=== PATIENT | male | born 1940 | race Caucasian/White ===

== ENCOUNTER 2017-03-02 08:38 | Emergency (ER) | payer OTHER ==
[~2017-03-02] VITALS: Ht 170.2 cm; Wt 89.0 kg
[2017-03-02 08:51] VITALS: BP 176/84
[2017-03-02 08:52] VITALS: PULSE 134; RESP 16; TEMP 98.4; O2SAT 99
--- NOTE | 2017-03-02 08:54 | PD ---
HPI . Rapid heart rate Chief Complaint: Cardiac Complaint Time Seen by Provider: 08:42 Travel History International Travel<30 days: No Contact w/Intl Traveler<30days: No Traveled to known affect area: No History of Present Illness HPI Patient presents from his doctor's office for a rapid heart rate. The patient reports that he was at his doctor's office today just for a routine 6 month checkup. He does admit that he has felt his heart racing in his ears for the last couple of weeks. He denies any associated symptoms such as chest pain, shortness of breath, nausea. He denies any previous similar history. He has noted no modifying factors. His symptoms are very mild. PFSH Social History Tobacco Use: No Allergies-Medications (Allergen,Severity, Reaction): Coded Allergies: Lactose (Verified Allergy, Severe, 03/02/17) Reported Meds & Prescriptions Reported Meds & Active Scripts Active Reported Aspirin 81 (Aspirin) 81 Mg Tabdr 81 Mg PO DAILY Atorvastatin (Atorvastatin Calcium) 40 Mg Tab 40 Mg PO HS Losartan (Losartan Potassium) 25 Mg Tab 25 Mg PO DAILY Metformin (Metformin HCl) 850 Mg Tab 850 Mg PO BIDPC With meals Review of Systems Except as stated in HPI: all other systems reviewed are Neg HENT: No: Lightheadedness Cardiovascular: Positive: Tachycardia, No: Chest Pain or Discomfort Respiratory: No: Shortness of Breath Gastrointestinal: No: Nausea Physical Exam Narrative GENERAL: Patient is awake and alert and in no acute distress. SKIN: Warm and dry. He is a little clammy. He relates this to the hot weather. HEAD: Atraumatic. Normocephalic. EYES: Pupils equal and round. Extraocular movements are intact. ENT: No nasal bleeding or discharge. Mucous membranes pink and moist. NECK: Trachea midline. Neck is supple. CARDIOVASCULAR: Regular rhythm, rapid rate. Heart sounds normal. RESPIRATORY: No accessory muscle use. Lungs are clear with full air movement throughout. GASTROINTESTINAL: Abdomen soft, non-tender, nondistended. MUSCULOSKELETAL: No obvious deformities. No edema. NEUROLOGICAL: Awake and alert. No obvious cranial nerve deficits. Motor grossly within normal limits. Normal speech. PSYCHIATRIC: Appropriate mood and affect; insight and judgment normal. Data Data Last Documented VS Vital Signs Date Time Temp Pulse Resp B/P Pulse Ox O2 Delivery O2 Flow Rate FiO2 03/02/17 09:21 91 16 164/91 100 Nasal Cannula 2 03/02/17 09:04 98.4 Orders Ecg Monitoring (03/02/17 08:47) Blood Pressure (03/02/17 08:47) Iv Access Insert/Monitor (03/02/17 08:47) Oximetry (03/02/17 08:47) Vital Signs (03/02/17 08:47) Diltiazem Inj (Cardizem Inj) (03/02/17 09:00) Sodium Chloride 0.9% Flush (Ns Flush) (03/02/17 09:00) Diltiazem Inj (Cardizem Inj) (03/02/17 09:15) Electrocardiogram (03/02/17 08:47) Basic Metabolic Panel (Bmp) (03/02/17 08:47) Ckmb (Isoenzyme) Profile (03/02/17 08:47) Complete Blood Count With Diff (03/02/17 08:47) D-Dimer (03/02/17 08:47) Magnesium (Mg) (03/02/17 08:47) Prothrombin Time / Inr (Pt) (03/02/17 08:47) Act Partial Throm Time (Ptt) (03/02/17 08:47) Troponin I (03/02/17 08:47) Chest, Single Ap (03/02/17 08:47) Aspirin Chew (Aspirin Chew) (03/02/17 09:00) Thyroid Stimulating Hormone (03/02/17 08:47) Ct Pulmonary Angiogram (03/02/17 09:37) Labs Laboratory Tests Test 03/02/17 08:55 White Blood Count 7.3 TH/MM3 Red Blood Count 4.46 MIL/MM3 Hemoglobin 14.2 GM/DL Hematocrit 42.6 % Mean Corpuscular Volume 95.4 FL Mean Corpuscular Hemoglobin 31.8 PG Mean Corpuscular Hemoglobin 33.3 % Concent Red Cell Distribution Width 13.3 % Platelet Count 185 TH/MM3 Mean Platelet Volume 7.4 FL Neutrophils (%) (Auto) 55.0 % Lymphocytes (%) (Auto) 34.5 % Monocytes (%) (Auto) 7.6 % Eosinophils (%) (Auto) 2.3 % Basophils (%) (Auto) 0.6 % Neutrophils # (Auto) 4.0 TH/MM3 Lymphocytes # (Auto) 2.5 TH/MM3 Monocytes # (Auto) 0.6 TH/MM3 Eosinophils # (Auto) 0.2 TH/MM3 Basophils # (Auto) 0.0 TH/MM3 CBC Comment DIFF FINAL Differential Comment Prothrombin Time 10.9 SEC Prothromb Time International 1.0 RATIO Ratio Activated Partial 24.4 SEC Thromboplast Time D-Dimer Quantitative (PE/DVT) 0.65 MG/L FEU Sodium Level 139 MEQ/L Potassium Level 4.4 MEQ/L Chloride Level 105 MEQ/L Carbon Dioxide Level 24.3 MEQ/L Anion Gap 10 MEQ/L Blood Urea Nitrogen 13 MG/DL Creatinine 0.90 MG/DL Estimat Glomerular Filtration 82 ML/MIN Rate Random Glucose 256 MG/DL Calcium Level 9.2 MG/DL Magnesium Level 2.0 MG/DL Total Creatine Kinase 75 U/L Troponin I LESS THAN 0.02 NG/ML Thyroid Stimulating Hormone 2.000 uIU/ML [address] [place] [address] Medical Decision Making Medical Screen Exam Complete: Yes Emergency Medical Condition: Yes Medical Record Reviewed: Yes (he has no old records in our system. He does bring with him and EKG shows an atrial flutter pattern with a rate of about 135. ) Interpretation(s) EKG shows atrial flutter with a ventricular rate of 135. Differential Diagnosis Differential diagnosis of palpitations includes but is not limited to anxiety, SVT, aVF with RVR, VT, sinus tachycardia, PVCs Narrative Course Patient presents for treatment of atrial flutter with a rapid ventricular response. I have ordered Cardizem for rate control. He will eventually need to be anticoagulated. I have not ordered this yet pending consultation with the admitting doctor. I have ordered a chest pain workup as well as a TSH. CBC & BMP Diagram 03/02/17 08:55 Total creatinine is 75. Troponin is less than 0.02. TSH is 2.000. D-dimer is 0.65. I have subsequently ordered a CT for PE. The patient's rate has been controlled with a single IV bolus of Cardizem. The patient does not feel that he needs to have a CT for PE. Nor does he feel that he needs to be admitted for further evaluation and treatment. I will discuss the case with Dr. Min and we will come up with that disposition. Dr. Min is out of the office today. I have spoken with his nurse practitioner, Kirstin Minor. I will start the patient on Eliquis and Cardizem as an outpatient. He will make the referral to cardiology. She or Dr. Min will see the patient in follow-up on Sunday. Diagnosis Primary Impression: Atrial flutter with rapid ventricular response Additional Impression: Elevated d-dimer Patient Instructions: Atrial Flutter (DC), General Instructions Med/Other Pt SpecificInfo: Prescription(s) given Scripts Diltiazem CD 24 HR (Cardizem CD 24 HR)240 Mg [id number] Mg PO DAILY #30 CAP Ref 0 Prov:Faye Gotti MD 03/02/17 Apixaban (Eliquis)5 Mg Tab5 Mg PO BID #60 TAB Ref 0 Prov:Faye Gotti MD 03/02/17 Disposition: 01 DISCHARGE HOME Condition: Stable Faye Gotti MD Mar 02, 2017 08:54
[2017-03-02] MEDS ORDERED: SODIUM CHLORIDE 0.9% FLUSH 10 ML FLUSH IVF PRN (09:00)
[2017-03-02] MEDS ORDERED: DILTIAZEM HCL 25 MG/5 ML VIAL IV PUSH ONE (09:00)
[2017-03-02] MEDS ORDERED: ASPIRIN 81 MG CHEW TAB PO ONE (09:00)
[2017-03-02 09:02] LABS: BASOPHIL % 0.6 % (0.0-2.0); EOSINOPHIL # 0.2 TH/MM3 (0-0.4); EOSINOPHIL % 2.3 % (0.0-4.0); HEMATOCRIT 42.6 % (39.0-51.0); HEMO FLAGS DIFF FINAL; LYMPH % 34.5 % (9.0-44.0); LYMPHOCYTE # 2.5 TH/MM3 (1.0-4.8); MEAN CELL VOLUME 95.4 FL (80.0-100.0); MEAN CORPUSCULAR HEMOGLOBIN 31.8 PG (27.0-34.0); MEAN CORPUSCULAR HGB CONC 33.3 % (32.0-36.0); MONO % 7.6 % (0.0-8.0); PLATELET COUNT 185 TH/MM3 (150-450); RED BLOOD COUNT 4.46 MIL/MM3 (4.50-5.90); RED CELL DISTRIBUTION WIDTH 13.3 % (11.6-17.2); WHITE BLOOD COUNT 7.3 TH/MM3 (4.0-11.0)
[2017-03-02 09:04] VITALS: BP 176/84; PULSE 134; RESP 16; TEMP 98.4; O2SAT 99
[2017-03-02 09:08] LABS: CHLORIDE 105 MEQ/L (98-107); POTASSIUM 4.4 MEQ/L (3.5-5.1); SODIUM (NA) 139 MEQ/L (136-145)
[2017-03-02] MEDS ORDERED: ASPI-110 PO (09:09)
[2017-03-02] MEDS ORDERED: LOSA25TA PO (09:09)
[2017-03-02] MEDS ORDERED: ATOR40TA16 PO (09:09)
[2017-03-02] MEDS ORDERED: METF850T PO (09:09)
[2017-03-02 09:11] LABS: ANION GAP 10 MEQ/L (5-15); BICARBONATE 24.3 MEQ/L (21.0-32.0); BLOOD UREA NITROGEN 13 MG/DL (7-18)
[2017-03-02 09:14] LABS: APTT (PATIENT) 24.4 SEC (24.3-30.1); GLOMERULAR FILTRATION RATE 82 ML/MIN (>89); PROTHROMBIN TIME - PATIENT 10.9 SEC (9.8-11.6)
[2017-03-02] MEDS ORDERED: DILTIAZEM HCL 50 MG/10 ML VIAL IV PUSH ONE (09:15)
[2017-03-02 09:21] VITALS: BP 164/91; PULSE 91; RESP 16; O2SAT 100
[2017-03-02 09:27] LABS: CREATINE KINASE 75 U/L (39-308)
--- NOTE | 2017-03-02 09:46 | RADHPO ---
EXAM DATE/TIME: 03/02/2017 09:27 [facility] COMPARISON: No previous studies available for comparison. INDICATIONS : Chest palpatations MEDICAL HISTORY : Hypertension. Hypercholesterolemia. Diabetes mellitus type II. SURGICAL HISTORY : None. ENCOUNTER: Initial ACUITY: 1 day PAIN SCORE: 5/10 LOCATION: Bilateral chest FINDINGS: A single view of the chest demonstrates the lungs to be symmetrically aerated without evidence of mas s, infiltrate or effusion. The cardiomediastinal contours are unremarkable. Osseous structures are intact. CONCLUSION: 1. No acute cardiopulmonary findings. Oseas Freed MD on March 02, 2017 at 9:43 Board Certified Radiologist. This report was verified electronically.
[2017-03-02] MEDS ORDERED: APIX5TAB PO (10:32)
[2017-03-02] MEDS ORDERED: CARD240C6 PO (10:32)
[2017-03-02 10:42] VITALS: BP 152/68
--- NOTE | 2017-03-02 22:23 | EKG ---
Date Performed: 03/02/2017 Time Performed: 08:54:40 PTAGE: 76 years EKG: ATRIAL FLUTTER/TACHYCARDIA WITH RAPID VENTRICULAR RESPONSE MODERATE ST DEPRESSION ABNORMAL ECG NO PREVIOUS TRACING DOCTOR: Nurys Medina Interpretating Date/Time 03/02/2017 22:22:17
== END 2017-03-02 10:50 | disposition home or self-care (01) ==
LOC: PHED 08:38
DX: I48.92 Unspecified atrial flutter (principal); R79.89 Other specified abnormal findings of blood chemistry; Z79.82 Long term (current) use of aspirin
CPT/HCPCS: 71010; 80048; 82550; 83735; 84443; 84484; 85025; 85379; 85610; 85730; 93005; 96374

== ENCOUNTER 2017-10-19 09:04 | Emergency (ER) | payer OTHER ==
[~2017-10-19] VITALS: Ht 170.2 cm; Wt 90.0 kg
[~2017-10-19 09:04] MED LIST: APIX5TAB PO; ASPI1TAB57 PO; ATOR40TA16 PO; CARD240C6 PO; LOSA25TA PO; METF850T PO
[2017-10-19 09:14] VITALS: BP 113/64; PULSE 90; RESP 18; TEMP 98.3; O2SAT 100
[2017-10-19] MEDS ORDERED: SODIUM CHLORIDE 0.9% FLUSH 10 ML FLUSH IVF PRN (09:30)
--- NOTE | 2017-10-19 09:38 | PD ---
HPI Chief Complaint: Medical Clearance Time Seen by Provider: 09:25 Travel History International Travel<30 days: No Contact w/Intl Traveler<30days: No Traveled to known affect area: No History of Present Illness HPI Patient is pleasant but poor historian. He states that he was at Dr. Sanders's office and presented there for a routine examination, however he was promptly sent to the ER because he had a high heart rate of 120 according to patient. However it is unknown as to what rhythm he was and because this was not told to him. Patient currently denies any associated factors such as fever cough chest pain shortness of breath abdominal pain back pain nausea vomiting or diarrhea. Patient is sent here by Dr. Sanders for further evaluation, as per the patient he has no complaints at all. PCP is Dr. Richard Sanders No known drug allergies Past medical history? PFSH Past Medical History Hx Anticoagulant Therapy: Yes Cardiovascular Problems: Yes High Cholesterol: Yes Diabetes: Yes Diminished Hearing: No Hypertension: Yes Social History Alcohol Use: Yes (WINE DAILY) Tobacco Use: No Substance Use: No Allergies-Medications (Allergen,Severity, Reaction): Coded Allergies: lactose (Unverified Allergy, Severe, 05/01/17) Reported Meds & Prescriptions Reported Meds & Active Scripts Active Eliquis (Apixaban) 5 Mg Tab 5 Mg PO BID Reported Cartia Xt (Diltiazem ER 24 HR) 120 Mg Caper 240 Mg PO DAILY Metoprolol Tartrate 25 Mg Tab 25 Mg PO DAILY Fenofibrate 54 Mg Tab 54 Mg PO DAILY Atorvastatin (Atorvastatin Calcium) 40 Mg Tab 40 Mg PO HS Losartan (Losartan Potassium) 25 Mg Tab 25 Mg PO DAILY Metformin (Metformin HCl) 850 Mg Tab 850 Mg PO BIDPC With meals Review of Systems General / Constitutional: No: Fever Eyes: No: Visual changes HENT: No: Headaches Cardiovascular: Positive: Palpitations Respiratory: No: Shortness of Breath Gastrointestinal: No: Abdominal Pain Genitourinary: No: Dysuria Musculoskeletal: No: Pain Skin: No Rash Neurologic: No: Weakness Psychiatric: No: Depression Endocrine: No: Polydipsia Hematologic/Lymphatic: No: Easy Bruising Physical Exam Narrative GENERAL: SKIN: Warm and dry. HEAD: Atraumatic. Normocephalic. EYES: Pupils equal and round. No scleral icterus. No injection or drainage. ENT: No nasal bleeding or discharge. Mucous membranes pink and moist. NECK: Trachea midline. No JVD. CARDIOVASCULAR: irregular rhythm, rate in low 100's RESPIRATORY: No accessory muscle use. Clear to auscultation. Breath sounds equal bilaterally. GASTROINTESTINAL: Abdomen soft, non-tender, nondistended. MUSCULOSKELETAL: Extremities without clubbing, cyanosis, or edema. No obvious deformities. NEUROLOGICAL: Awake and alert. No obvious cranial nerve deficits. Motor grossly within normal limits. Five out of 5 muscle strength in the arms and legs. Normal speech. PSYCHIATRIC: Appropriate mood and affect; insight and judgment normal. Data Data Last Documented VS Vital Signs Date Time Temp Pulse Resp B/P (MAP) Pulse Ox O2 Delivery O2 Flow Rate FiO2 10/19/17 09:42 98 Nasal Cannula 2.00 10/19/17 09:14 98.3 90 18 113/64 (80) Orders Orders Electrocardiogram (10/19/17:25) B-Type Natriuretic Peptide (10/19/17:25) Ckmb (Isoenzyme) Profile (10/19/17:25) Complete Blood Count With Diff (10/19/17:25) Comprehensive Metabolic Panel (10/19/17:25) D-Dimer (10/19/17:25) Prothrombin Time / Inr (Pt) (10/19/17:25) Act Partial Throm Time (Ptt) (10/19/17:25) Troponin I (10/19/17:25) Lipase (10/19/17 09:25) Chest, Single Ap (10/19/17:25) Ecg Monitoring (10/19/17:25) Iv Access Insert/Monitor (10/19/17:25) Oximetry (10/19/17:25) Oxygen Administration (10/19/17:25) Sodium Chloride 0.9% Flush (Ns Flush) (10/19/17 09:30) CKMB (10/19/17:45) CKMB% (10/19/17 09:45) Labs Laboratory Tests Test 10/19/17 09:45 White Blood Count 6.7 TH/MM3 Red Blood Count 4.55 MIL/MM3 Hemoglobin 14.8 GM/DL Hematocrit 43.2 % Mean Corpuscular Volume 94.9 FL Mean Corpuscular Hemoglobin 32.5 PG Mean Corpuscular Hemoglobin Concent 34.2 % Red Cell Distribution Width 13.3 % Platelet Count 164 TH/MM3 Mean Platelet Volume 7.7 FL Neutrophils (%) (Auto) 63.7 % Lymphocytes (%) (Auto) 24.7 % Monocytes (%) (Auto) 8.2 % Eosinophils (%) (Auto) 2.8 % Basophils (%) (Auto) 0.6 % Neutrophils # (Auto) 4.2 TH/MM3 Lymphocytes # (Auto) 1.6 TH/MM3 Monocytes # (Auto) 0.5 TH/MM3 Eosinophils # (Auto) 0.2 TH/MM3 Basophils # (Auto) 0.0 TH/MM3 CBC Comment DIFF FINAL Differential Comment Prothrombin Time 11.3 SEC Prothromb Time International Ratio 1.1 RATIO Activated Partial Thromboplast Time 25.9 SEC D-Dimer Quantitative (PE/DVT) 0.86 MG/L FEU Blood Urea Nitrogen 11 MG/DL Creatinine 1.03 MG/DL Random Glucose 239 MG/DL Total Protein 7.8 GM/DL Albumin 4.0 GM/DL Calcium Level 9.9 MG/DL Alkaline Phosphatase 81 U/L Aspartate Amino Transf (AST/SGOT) 25 U/L Alanine Aminotransferase (ALT/SGPT) 35 U/L Total Bilirubin 0.6 MG/DL Sodium Level 135 MEQ/L Potassium Level 4.2 MEQ/L Chloride Level 100 MEQ/L Carbon Dioxide Level 26.9 MEQ/L Anion Gap 8 MEQ/L Estimat Glomerular Filtration Rate 70 ML/MIN Total Creatine Kinase 154 U/L Creatine Kinase MB 2.2 NG/ML Troponin I LESS THAN 0.02 NG/ML B-Type Natriuretic Peptide 92 PG/ML Lipase 387 U/L [facility] Medical Decision Making Medical Screen Exam Complete: Yes Emergency Medical Condition: Yes Medical Record Reviewed: Yes Interpretation(s) afib with cvr 90's, no stemi pattern Differential Diagnosis afib v svt v anemia v dehydration v atypical mi Narrative Course patient is already on eliquis....no anemia, normal electrolytes, no e/o dehydration, neg troponin Diagnosis Primary Impression: afib wit cvr Disposition: 01 DISCHARGE HOME Condition: Stable Gerardo Parrish MD Oct 19, 2017 09:38
--- NOTE | 2017-10-19 09:47 | RADRPT ---
EXAM DATE/TIME: 10/19/2017 09:32 [facility] COMPARISON: No previous studies available for comparison. INDICATIONS : High pulse, sent by the MEDICAL HISTORY : Hypertension. Hypercholesterolemia. Diabetes mellitus type II. SURGICAL HISTORY : None. ENCOUNTER: Initial ACUITY: 1 day PAIN SCORE: 0/10 LOCATION: Bilateral chest FINDINGS: A single view of the chest demonstrates the lungs to be symmetrically aerated without evidence of mas s, infiltrate or effusion. Right lung density noted. The cardiomediastinal contours are unremarkable . Osseous structures are intact. CONCLUSION: No acute disease. Right upper lobe lung density. Outpatient CT chest recommended. Bashir Wnog MD on October 19, 2017 at 9:39 Board Certified Radiologist. This report was verified electronically.
[2017-10-19] MEDS ORDERED: CART120C PO (09:53)
[2017-10-19] MEDS ORDERED: FENO54TA PO (09:53)
[2017-10-19] MEDS ORDERED: METO25TA3 PO (09:53)
[2017-10-19 10:10] LABS: AUTOMATED NEUTROPHIL # 4.2 TH/MM3 (1.8-7.7); BASOPHIL % 0.6 % (0.0-2.0); EOSINOPHIL # 0.2 TH/MM3 (0-0.4); EOSINOPHIL % 2.8 % (0.0-4.0); HEMATOCRIT 43.2 % (39.0-51.0); HEMOGLOBIN 14.8 GM/DL (13.0-17.0); LYMPH % 24.7 % (9.0-44.0); LYMPHOCYTE # 1.6 TH/MM3 (1.0-4.8); MEAN CELL VOLUME 94.9 FL (80.0-100.0); MEAN CORPUSCULAR HEMOGLOBIN 32.5 PG (27.0-34.0); MEAN CORPUSCULAR HGB CONC 34.2 % (32.0-36.0); MEAN PLATELET VOLUME 7.7 FL (7.0-11.0); MONO % 8.2 % (0.0-8.0); MONOCYTE # 0.5 TH/MM3 (0-0.9); NEUT % 63.7 % (16.0-70.0); PLATELET COUNT 164 TH/MM3 (150-450); RED BLOOD COUNT 4.55 MIL/MM3 (4.50-5.90); RED CELL DISTRIBUTION WIDTH 13.3 % (11.6-17.2); WHITE BLOOD COUNT 6.7 TH/MM3 (4.0-11.0)
[2017-10-19 10:25] LABS: D-DIMER 0.86 MG/L FEU (0.00-0.50); INTERNATIONAL NORMALIZED RATIO 1.1 RATIO; PROTHROMBIN TIME - PATIENT 11.3 SEC (9.8-11.6)
[2017-10-19 10:30] LABS: AST (GOT) 25 U/L (15-37); BICARBONATE 26.9 MEQ/L (21.0-32.0); BLOOD UREA NITROGEN 11 MG/DL (7-18); CALCIUM 9.9 MG/DL (8.5-10.1); CREATININE 1.03 MG/DL (0.60-1.30); GLOMERULAR FILTRATION RATE 70 ML/MIN (>89); GLUCOSE,RANDOM 239 MG/DL (74-106)
[2017-10-19 10:31] LABS: ALT (GPT) 35 U/L (12-78)
[2017-10-19 11:08] LABS: ALKALINE PHOSPHATASE 81 U/L (45-117); CHLORIDE 100 MEQ/L (98-107); SODIUM (NA) 135 MEQ/L (136-145); TOTAL BILIRUBIN ADULT 0.6 MG/DL (0.2-1.0); TOTAL PROTEIN 7.8 GM/DL (6.4-8.2); TROPONIN I LESS THAN 0.02 NG/ML (0.02-0.05)
[2017-10-19 12:13] VITALS: BP 115/56; PULSE 71; RESP 19; O2SAT 97
--- NOTE | 2017-10-19 21:19 | EKG ---
Date Performed: 10/19/2017 Time Performed: 09:38:33 PTAGE: 77 years EKG: ATRIAL FIBRILLATION WITH VENTRICULAR RATE OF 98 BPM Compared to previous tracing, ventricul ar rate is slower ABNORMAL RHYTHM ECG PREVIOUS TRACING : 03/02/2017 08.54 DOCTOR: Hever Green Interpretating Date/Time 10/19/2017 21:18:03
== END 2017-10-19 13:20 | disposition home or self-care (01) ==
LOC: NEPC 09:04
DX: I48.91 Unspecified atrial fibrillation (principal); I10 Essential (primary) hypertension; E78.00 Pure hypercholesterolemia, unspecified; E11.9 Type 2 diabetes mellitus without complications; Z79.01 Long term (current) use of anticoagulants; Z79.84 Long term (current) use of oral hypoglycemic drugs; Z79.899 Other long term (current) drug therapy
CPT/HCPCS: 71045; 80053; 82550; 82552; 83690; 83880; 84484; 85025; 85379; 85610; 85730; 93005